=== PATIENT | female | born 1950 | race Hispanic/Latino ===

== ENCOUNTER 2018-05-29 08:37 | Day surgery (SDC) | payer MEDICARE, BC ==
[2018-05-25 16:36] VITALS: BMI 19.7
[2018-05-29] MEDS ORDERED: Propofol 10 mg/ml Inj (20 ML) ONE (11:24)
[2018-05-29] MEDS ORDERED: Sodium Chloride 0.9% 1,000 ML IV SCH (12:15)
[2018-05-29 12:19] VITALS: O2SAT 99
[2018-05-29 13:40] VITALS: BP 117/59; PULSE 52; RESP 19; TEMP 97.6
== END 2018-05-29 13:58 | disposition home or self-care (01) ==
LOC: ENDO 08:37
PROVIDERS: ATTEND Internal Medicine Gastroenterology
DX: Z12.11 Encounter for screening for malignant neoplasm of colon (principal); D12.0 Benign neoplasm of cecum; K57.30 Diverticulosis of large intestine without perforation or abscess without bleeding; K64.8 Other hemorrhoids
CPT/HCPCS: 45381; 45385; 88305; J2001; J2704; J3010; J7030; J7040

== ENCOUNTER 2018-10-30 08:19 | Day surgery (SDC) | payer MEDICARE, BC ==
[2018-10-21 10:30] VITALS: BMI 20.2
[2018-10-30 08:45] VITALS: TEMP 97.8
[2018-10-30] MEDS ORDERED: Propofol 10 mg/ml Inj (20 ML) ONE (09:58)
[2018-10-30] MEDS ORDERED: Sodium Chloride 0.9% 1,000 ML IV SCH (10:30)
[2018-10-30 14:41] VITALS: PULSE 66; RESP 16; O2SAT 99
[2018-10-30 14:42] VITALS: BP 101/69
== END 2018-10-30 12:11 | disposition home or self-care (01) ==
LOC: ENDO 08:19
PROVIDERS: ATTEND Internal Medicine Gastroenterology
DX: D12.0 Benign neoplasm of cecum (principal); K57.30 Diverticulosis of large intestine without perforation or abscess without bleeding; K64.8 Other hemorrhoids; Z86.010 Personal history of colon polyps
CPT/HCPCS: 45380; 88305; J2001; J2704; J7030; J7040